=== PATIENT | female | born 1930 | race Asian ===

== ENCOUNTER → 2017-08-02 | Outpatient (CLI) | payer MEDICARE, OTHER | END | disposition home or self-care (01) | LOC: RADPV 15:31 | PROVIDERS: ATTEND Hospitalist | DX: I51.7 Cardiomegaly (principal); I70.0 Atherosclerosis of aorta; N18.3 Chronic kidney disease, stage 3 (moderate) | CPT/HCPCS: 71020 ==

== ENCOUNTER → 2019-07-26 | Outpatient (CLI) | payer MEDICARE, OTHER ==
[~2019-07-26] VITALS: Ht 144.8 cm; Wt 44.5 kg
[~2019-07-26] MED LIST: AMLO5TAB9 PO; BUME1TAB34 PO; CALC25 PO; DONE5TAB5 PO; EPOE10I SQ; FERR-89 PO; HYDR10TA31 PO; ISOS10TA16 PO; MIRT-92 PO; PARO10TA89 PO; PRAV20TA4 PO; RANO500T3 PO; ZARO5 PO
[2019-07-26 10:53] VITALS: BP 127/60
== END | disposition home or self-care (01) ==
LOC: SRCNTR 10:52
PROVIDERS: ATTEND Internal Medicine Critical Care Medicine
DX: J44.9 Chronic obstructive pulmonary disease, unspecified (principal); E11.9 Type 2 diabetes mellitus without complications; I10 Essential (primary) hypertension; Z96.653 Presence of artificial knee joint, bilateral
CPT/HCPCS: G0463